=== PATIENT | female | born 1985 | race Two or more races ===

== ENCOUNTER 2025-02-28 11:49 | Emergency (ER) | payer OTHER ==
[~2025-02-28] VITALS: Ht 160 cm; Wt 72.6 kg
[~2025-02-28 11:49] MED LIST: CIPRO500 MG PO; INTESTINEX680 M1 PO; LEVSIN/SL0.125 MG SL; METRONIDAZOLE500 MG PO
[2025-02-28 12:58] VITALS: BP 110/74; O2SAT 100
[2025-02-28] MEDS ORDERED: KETOROLAC TROMETHAMINE 60 MG VIAL IM ONE ×2 (15:00→16:33)
[2025-02-28] MEDS ORDERED: ACETAMINOPHEN 500 MG GEL..CAP PO ONE ×2 (15:00→16:33)
[2025-02-28] MEDS ORDERED: DEXAMETHASONE SODIUM PHOSPHATE 4 MG/ML VIAL IM ONE (15:00)
[2025-02-28] MEDS ORDERED: DEXAMETHASONE SODIUM PHOSPHATE 4 MG/ML VIAL ONE (16:33)
== END 2025-02-28 17:11 | disposition left against medical advice (07) ==
LOC: ER 11:49
DX: B34.8 Other viral infections of unspecified site (principal)